=== PATIENT | male | born 1975 | race Caucasian/White ===

== ENCOUNTER → 2016-08-29 | Day surgery (SDC) | payer OTHER ==
[~2016-08-29] MED LIST: Lidocain 1% EPI 1:100,000 * 30 ML MDV ONE
[2016-08-29 17:43] VITALS: BP 125/83
--- NOTE | 2016-09-05 11:27 | OP ---
OPERATIVE REPORT: DATE OF OPERATION: 08/29/16 DATE OF : 73 SURGEON: Esdras Coronel MD ARMATURE REPAIRER: DAVID Cassidy ANESTHESIOLOGIST: None. ANESTHESIA: Local only with 1% lidocaine with epinephrine. PRE-OP DIAGNOSIS: Right carpal tunnel syndrome. POST-OP DIAGNOSIS: Right carpal tunnel syndrome. OPERATIVE PROCEDURE: Open right carpal tunnel release. INDICATIONS: Lit is a 41-year-old male, who has had increasing symptoms consistent with right car pal tunnel syndrome. He had electrodiagnostic studies which confirmed the diagnosis. This stemmed from what he felt was an injury at work on 06/15/16. We talked about risks and benefits and he elec alfred to proceed. EBL: 5 mL. COMPLICATIONS: None. FINDINGS: As expected. DESCRIPTION OF PROCEDURE: Lit was seen in the preoperative holding area and the correct site and side were marked. He had a time-out and then I infiltrated the operative area with 1% lidocaine wit h epinephrine. We then waited quite some time and then came back to the operating room. The arm wa s then prepped and draped in the usual fashion and a formal time-out was performed. I then went ahead and made a standard longitudinal incision about 2 to 3 cm long for right carpal tu nnel release. Dissection was carried down through the subcutaneous tissue and the palmar fascia. A proximal subcutaneous tunnel was made prior to opening the transverse carpal ligament, and then sha shannany opened the transverse carpal ligament distally and carried the release proximally just radial t o the hook of the hamate. When I got to the level of the proximal aspect of the incision, I placed a Batsheva retractor and retracted the skin and subcutaneous superficially and the proximal aspect of th e transverse carpal ligament and distal antebrachial fascia was released under direct visualization to level of about 4 to 5 cm proximal to the volar wrist flexion crease. I then went ahead and check ed to make sure the release was completely adequate proximally and distally. The superficial palmar arch was seen. The release was absolutely complete and there was no pressure on the nerves. I gurpreet t ahead and irrigated the wound and closed the wound with some 4-0 nylon suture. The wound was dres sed with piece of Xeroform, 4x4, and an Arthur wrap. He was then taken to the recovery room in stable condition. [id number]/[facility] #: [id number]
== END | disposition home or self-care (01) ==
LOC: OREAST 13:04
PROVIDERS: ATTEND Orthopaedic Surgery Hand Surgery
DX: G56.01 Carpal tunnel syndrome, right upper limb (principal)

== ENCOUNTER 2016-12-29 06:34 | Day surgery (SDC) | payer OTHER ==
[~2016-12-29 06:34] MED LIST changes: +Buffered Lidocaine 1% SYR 3ML* 3 ML/SYR SYRINGE INTRADERM ONE; +Dexamethasone IV* 4 MG/ML 1 ML (4 MG) ONE; +Dexamethasone TAB* 4 MG PO ONE; +Famotidine IV* 10 MG/ML 2 ML (20 mg) IV ONE; +Famotidine IV* 10 MG/ML 2 ML (20 mg) ONE; -Lidocain 1% EPI 1:100,000 * 30 ML MDV ONE
[2016-12-29] MEDS ORDERED: fentaNYL* 50 MCG/ML 2 ML VIAL (100 MCG VIAL) ONE (07:09)
[2016-12-29] MEDS ORDERED: Bupivacaine 0.25% SDV* 30 ML ONE (07:16)
[2016-12-29] MEDS ORDERED: Lidocaine 2% PF * 5 ML VIAL ONE (07:19)
[2016-12-29] MEDS ORDERED: Propofol* 10 MG/ML 20 ML BTL IV PUSH ONE (07:19)
[2016-12-29] MEDS ORDERED: Meperidine SYRINGE* 50 MG/ML ONE (07:59)
[2016-12-29 09:25] VITALS: BP 120/72
--- NOTE | 2016-12-29 11:59 | OP ---
DATE OF OPERATION: 12/29/16 - [facility] DATE OF : 73. SURGEON: Esdras Coronel MD. DUST SAMPLER: DAVID Darby. ANESTHESIOLOGIST: Dr. Davi Davila. ANESTHESIA: Local with MAC. PREOPERATIVE DIAGNOSIS: Left carpal tunnel syndrome. POSTOPERATIVE DIAGNOSIS: Left carpal tunnel syndrome. OPERATIVE PROCEDURE: Left open carpal tunnel release. INDICATION: Lit is a 41-year-old gentleman with left carpal tunnel syndrome clinically and electrodiagnostically. He has been dealing with this for quite some time. He has tried bracing and other nonoperative treatments. He has had the right carpal tunnel release done a couple of months ago and he has done quite well from that. We talked about risks and benefits and he wanted to have the left side done. ESTIMATED BLOOD LOSS: 2 mL. COMPLICATIONS: None. FINDINGS: As expected. DESCRIPTION OF PROCEDURE: Lit was seen in the preoperative holding area and the correct site, side, and procedure were identified. We came back to the operating room where he got some anesthesia and then he had time-out then I infiltrated the operative area with 0.25% Marcaine. We then prepped and draped the arm in the usual fashion and time-out was performed. The arm was exsanguinated and the tourniquet inflated to 250 mmHg. I began by making a 2 to 3 cm longitudinal incision in the standard location for carpal tunnel release. Dissection was carried down through the subcutaneous tissue and palmar fascia to expose the transverse carpal ligament. This was released just off the radial border of the hook of the hamate. Release was carried out from the distal to proximal. Once I had completed the release distally, I released the subcutaneous tissue and retracted the skin and subcutaneous tissues superficially and ulnarly to expose the proximal transverse carpal ligament and distal antebrachial fascia. Under direct visualization, the tenotomy scissors were used to do the release to a level several centimeters proximal to the wrist flexion crease. This was released just off the ulnar aspect of the palmaris longus tendon. I then checked the decompression. I released a few more bands distally. There was absolutely no compression on the nerve proximally or distally. I then irrigated out the wound and the skin was closed with some 4-0 nylon horizontal mattress sutures. The wound was then dressed with Xeroform, 4x4's, sterile Webril, and then a volar cockup wrist splint was applied. He was then woken up and taken to the recovery room in stable condition. [id number]/[facility] #: [id number] ANNE MARIE
== END 2016-12-29 09:05 | disposition home or self-care (01) ==
LOC: OREAST 06:34
PROVIDERS: ATTEND Orthopaedic Surgery Hand Surgery
DX: G56.02 Carpal tunnel syndrome, left upper limb (principal); Z87.891 Personal history of nicotine dependence
CPT/HCPCS: J1100; J2704; J3010

== ENCOUNTER 2017-03-04 12:13 | Emergency (ER) | payer BC, OTHER ==
[2017-03-04 13:04] VITALS: BP 127/81
--- NOTE | 2017-03-06 07:54 | UC ---
Flory Sutton Edward, scribed for Sunita Workman MD on 03/05/17 at 1852 . Complaint Male HPI - HPI Summary HPI Summary: 41 y/o male presents to [facility] c/o pain and swelling at the base of the penis starting yesterday. The pain is rated at a 7/10 @ triage characterized as a throbbing pain. Pt states has some reddness on foreskin. Pt states used tweezer for hair removal when first noted. Pt states no difficulty with retraction of foreskin. no drainage, no lesions. no discharge. No dysuria. Pt states sx increased after masturbation. Pt states this morning applied a cool pack which helped. states he then masturbated which made sx worse. No fevers, chills. No pain in testicles. no edema or erythema of scrotum. no back pain. N o nausea vomiting. Medications reviewed at this visit - History of Current Complaint Chief Complaint: UCGU Stated Complaint: PERSONAL Time Seen by Provider: 03/04/17 13:09 Hx Obtained From: Patient Onset/Duration: Sudden Onset, Lasting Days - Yesterday, Still Present Timing: Constant Severity Initially: Moderate Severity Currently: Moderate Pain Intensity: 7 Pain Scale Used: 0-10 Numeric Location: Penis - Base Associated Signs And Symptoms: Positive: Back Pain - Back aches. Negative: Dysuria, Penile Discharge - Allergies/Home Medications Allergies/Adverse Reactions: Allergies Allergy/AdvReac Type Severity Reaction Status Date / Time Varenicline [From Chantix] Allergy Intermediate See Comment Verified 03/04/17 13 :04 Paroxetine [From Paxil] Allergy Mild Hives Verified 03/04/17 13:04 Ziprasidone [From Geodon] Allergy Mild MANIC Verified 03/04/17 13:04 seasonal Allergy Mild nasal Uncoded 03/04/17 13:04 congestion Home Medications: Home Medications Cetirizine* [ZyrTEC 10 MG TAB*] 10 mg PO PRN 03/04/17 [History] PMH/Surg Hx/FS Hx/Imm Hx Previously Healthy: No GI/ History: Other Other GI/ History: STD in August 2016 Psychological History: Anxiety, Depression, Other Other Psychological History: Substance abuse disorder - 7 years sober - Surgical History Surgical History: Yes Surgery Procedure, Year, and Place: 08/2016 right carpal tunnel release- local. 2 impacted wisdom teeth removed years ago - Family History Known Family History: Positive: Cardiac Disease, Hypertension, Diabetes - Social History Occupation: Employed Full-time Lives: With Family Alcohol Use: None Substance Use Type: None Smoking Status (MU): Former Smoker Amount Used/How Often: smoked for ten years, smoked a carton a week Have You Smoked in the Last Year: Yes When Did the Patient Quit Smoking/Using Tobacco: years ago, last year started again, chews nicotine gum Review of Systems Constitutional: Negative Skin: Negative Eyes: Negative ENT: Negative Respiratory: Negative Cardiovascular: Negative Gastrointestinal: Negative Genitourinary: Other - Positive: pain at the base of the penis, erythema of foreskin No dysuria, penile discharge Motor: Negative Neurovascular: Negative Musculoskeletal: Negative Neurological: Negative Psychological: Negative All Other Systems Reviewed And Are Negative: Yes Physical Exam Triage Information Reviewed: Yes Appearance: Well-Appearing, No Pain Distress, Well-Nourished Vital Signs: Initial Vital Signs Temp 98.8 F 03/04/17 13:01 Pulse 66 03/04/17 13:01 Resp 16 03/04/17 13:01 BP 127/81 03/04/17 13:01 Pulse Ox 99 03/04/17 13:01 Eyes: Positive: Conjunctiva Clear ENT: Positive: Hearing grossly normal Neck exam: Normal Neck: Positive: Supple, Nontender Respiratory Exam: Normal Respiratory: Positive: Chest non-tender, Lungs clear, Normal breath sounds, No respiratory distress, No accessory muscle use Cardiovascular Exam: Normal Cardiovascular: Positive: RRR, No Murmur Abdominal Exam: Normal Abdomen Description: Positive: Nontender, No Organomegaly, Soft, Other: - RN present as chaparone throughout exam Pt with mild erythema dorsal penis, pt with area of mild inflammation over follicle. Easily retractable foresking no lesions. no discharge No pain with b/l palpation of testicles no masses No scrotal edema or erythema No hernia. Negative: CVA Tenderness (R), CVA Tenderness (L), Distended, Guarding Musculoskeletal Exam: Normal Neurological Exam: Normal Neurological: Positive: Alert, Muscle Tone Normal Psychological Exam: Normal Skin: Positive: Other - See GI/ Complaint Male Course/Dx - Course Course Of Treatment: Pt with erythema and focal follicale edema to foreskin. early cellulitis. No concerns for abscess. Recommend warm soaks. doxy. avoid friction. f/u with urology. detailed return precautions discussed with pt - including fever, inability to urinate, increased pain, back pain, increased reddness,. Pt states understanding, agreement with plan - Differential Dx/Diagnosis Provider Diagnoses: early cellulitis foreskin Discharge - Discharge Plan Condition: Stable Disposition: HOME Prescriptions: DOXYcycline CAP(*) [DOXYcycline 100MG CAP(*)] 100 mg PO BID #20 cap Patient Education Materials: Cellulitis (ED) Referrals: Ruben Collins MD [Medical Doctor] - Additional Instructions: - Take antibiotics as prescribed until gone - okay to apply cool soaks to the inflammed area - 2 times a day - avoid creating friction in along the inflammed skin - contact the urologist on Monday to schedule a follow-up appointment. Contact the urologist or go to the emergency department for increased swelling, pain, erythema, back, fevers, or any other questions or concerns The documentation as recorded by the Flory solis Edward accurately reflects the service I personally performed and the decisions made by , Sunita Workman MD.
== END 2017-03-04 13:49 | disposition home or self-care (01) ==
LOC: UCEAST 12:13
DX: N48.89 Other specified disorders of penis (principal); M54.9 Dorsalgia, unspecified; F41.9 Anxiety disorder, unspecified; F32.9 Major depressive disorder, single episode, unspecified; Z88.8 Allergy status to other drugs, medicaments and biological substances; F17.210 Nicotine dependence, cigarettes, uncomplicated
CPT/HCPCS: 81003; 99212; G0463